=== PATIENT | female | born 1940 | race Caucasian/White ===

== ENCOUNTER 2017-12-03 11:59 | Inpatient (IN) | payer OTHER ==
[~2017-12-03] VITALS: Ht 152.4 cm; Wt 137.0 kg
--- NOTE | 2017-12-03 11:59 | NUR ---
Patient BIBA ACLS from [facility], transferred to bed 5. RN evaluating patient at bedside.
[2017-12-03 12:01] VITALS: BP 176/79
--- NOTE | 2017-12-03 12:14 | NUR ---
PT. BIB BY BLS FROM [facility] DUE TO CHEST PAIN. PT. ARRIVED, RR EVEN AND UNLABORED, NO SOB. PT. WAS GIVEN NITROGLYCERIN AND ASA 325MG EN ROUTE. PT. STATES " I WAS SUPPOSE TO GO TO MY PAIN MANAGEMENT DOCTOR TODAY BUT THE GURNEY WAS TOO LITTLE SO I COULDNT GO, I GOT STRESSED OUT AND EVERY TIME I GET STRESSED OUT I GET CHEST PAIN, SO I CALLED 911, I DO NOT LIKE WHERE I AM AT RIGHT NOW". PT. DENIES NO CHEST PAIN AT THIS TIME. DENIES SOB. PT. IS AWAKE AND ALERT, SKIN IS WARM AND DRY TO TOUCH. SAFETY PRECAUTIONS IMPLEMENTED. ER MD NOTIFIED. WILL CONTINUE TO MONITOR.
--- NOTE | 2017-12-03 12:46 | NUR ---
PT. STATES " NURSE I CANT BREATHE". PT. 02 SAT: 88% RA . PT. WAS PUT ON O2 VIA NC 2L. ER NOTIFIED.
[2017-12-03] MEDS ORDERED: ISOS10TA9 PO (12:47)
[2017-12-03] MEDS ORDERED: D50SYR IV (12:47)
[2017-12-03] MEDS ORDERED: FURO-572 PO (12:47)
[2017-12-03] MEDS ORDERED: ACET-2619 PO (12:47)
[2017-12-03] MEDS ORDERED: SENN-72 PO (12:47)
[2017-12-03] MEDS ORDERED: LEVEMIR SUBQ (12:47)
[2017-12-03] MEDS ORDERED: DEXT31GE2 PO (12:47)
[2017-12-03] MEDS ORDERED: ROB PO (12:47)
[2017-12-03] MEDS ORDERED: DOCU-299 PO (12:47)
[2017-12-03] MEDS ORDERED: NA P135N RC (12:47)
[2017-12-03] MEDS ORDERED: MULT1SGL58 PO (12:47)
[2017-12-03] MEDS ORDERED: XAR10 PO (12:47)
[2017-12-03] MEDS ORDERED: SODI45SP36 NS (12:47)
[2017-12-03] MEDS ORDERED: BISA-213 RC (12:47)
[2017-12-03] MEDS ORDERED: CLOP75TA26 PO (12:47)
[2017-12-03] MEDS ORDERED: GUAI-646 PO (12:47)
[2017-12-03] MEDS ORDERED: MAGN400S60 PO (12:47)
[2017-12-03] MEDS ORDERED: ONDA4TAB PO (12:47)
[2017-12-03] MEDS ORDERED: GLUC1PDS1 IM (12:47)
[2017-12-03] MEDS ORDERED: BUDE1AER IH (12:47)
[2017-12-03] MEDS ORDERED: CARV12.5 PO (12:47)
[2017-12-03] MEDS ORDERED: MYCPWD TP (12:47)
[2017-12-03] MEDS ORDERED: ASPI81CT89 PO (12:47)
--- NOTE | 2017-12-03 12:47 | NUR ---
Dr. Olivares evaluating patient at bedside.
[2017-12-03] MEDS ORDERED: LID5T TP (12:52)
[2017-12-03] MEDS ORDERED: NITR0.4T2 SL (12:52)
[2017-12-03] MEDS ORDERED: GABA100C PO (12:52)
[2017-12-03] MEDS ORDERED: ACET-5636 PO (12:52)
[2017-12-03] MEDS ORDERED: INSU100S10 SC (12:55)
--- NOTE | 2017-12-03 13:39 | NUR ---
PT. RESTING COMFORTABLY IN BED, RR EVEN AND UNLABORED VIA 2L NC. BED IN LOWEST POSITION. WILL CONTINUE TO MONITOR.
[2017-12-03 13:53] LABS: BASOPHILS # (AUTO) 0.1 K/uL (0.00-0.22); BASOPHILS % (AUTO) 1.3 % (0.0-2.0); EOSINOPHILS # (AUTO) 0.3 K/uL (0-0.4); EOSINOPHILS % (AUTO) 4.2 % (0.0-4.0); HEMATOCRIT 41.6 % (36-48); LYMPHOCYTES # (AUTO) 2.5 K/uL (2.5-16.5); MEAN CORPUSCULAR HEMOGLOBIN 30 pg (27-31); MEAN CORPUSCULAR HGB CONC 34 g/dL (33-37); MEAN CORPUSCULAR VOLUME 89.2 fL (80-94); MONOCYTES # (AUTO) 0.6 K/uL (0.8-1.0); MONOCYTES % (AUTO) 8.5 % (1.7-9.3); NEUTROPHILS # (AUTO) 3.1 K/uL (1.8-7.7); PLATELET COUNT (AUTO) 233 K/uL (140-450); RED BLOOD CELL COUNT(AUTO) 4.66 MIL/uL (4.20-5.40); WHITE BLOOD COUNT (AUTO) 6.5 K/uL (4.8-10.8)
[2017-12-03 14:33] LABS: ANION GAP 12.4 (8-16); CARBON DIOXIDE 26.4 mmol/L (21-32); CHLORIDE 97 mmol/L (98-107); POTASSIUM 3.8 mmol/L (3.5-5.1); SODIUM SERUM 132 mmol/L (136-145)
[2017-12-03 14:34] LABS: ASPARTATE AMINOTRANSFERASE 22 U/L (15-37); CREATININE 1.3 mg/dL (0.6-1.3); GLUCOSE 339 mg/dL (74-106); TOTAL BILIRUBIN 0.3 mg/dL (0.0-1.0); UREA NITROGEN, BLOOD 17 mg/dL (7-18)
[2017-12-03 14:46] LABS: CREATINE KINASE MB 0.2 ng/mL (0-3.6)
--- NOTE | 2017-12-03 15:02 | NUR ---
PT. RESTING COMFORTABLY IN BED, RR EVEN AND UNLABORED, BED IN LOWEST POSITION. WILL CONTINUE TO MONITOR.
[2017-12-03] MEDS ORDERED: ZOLPIDEM 5 MG TAB PO PRN (15:35)
[2017-12-03] MEDS ORDERED: HYDROcodone/APAP 7.5/325 MG 1 TAB PO PRN (15:35)
[2017-12-03] MEDS ORDERED: LORazepam 0.5 MG TAB PO PRN (15:35)
[2017-12-03] MEDS ORDERED: ACETAMINOPHEN 325 MG TAB PO PRN (15:35)
[2017-12-03] MEDS ORDERED: DOCUSATE SODIUM 100 MG GELCAP PO PRN (15:35)
--- NOTE | 2017-12-03 16:11 | NUR ---
Patient will be admitted to care of DR. PIZANO . Admited to TELE . Will go to room 120A. Belongings list completed. Report to [facility] .
--- NOTE | 2017-12-03 16:11 | NUR ---
Admitted from ER , with chief complaint of CHEST PAIN, 77 y/o ,Female, Appropriate, AAOX4, NO S/S OF ACUTE DISTRESS. PT DENIES PAIN AT THIS TIME. IV SITE PATENT AND INTACT. PT oriented to call light, bed, phone,television, bathroom, smoking policy, visiting hours, procedures, ID bracelet on. Belongings list checked. CALL LIGHT WITHIN REACH. SAFETY MEASURES ENSURED. WILL CONTINUE TO MONITOR.
[2017-12-03 16:36] LABS: PROTHROMBIN TIME 10.8 secs (10.8-13.4)
[2017-12-03 16:39] LABS: FREE T4 (FREE THYROXINE) 1.01 ng/dL (0.76-1.46); MAGNESIUM 1.5 mg/dL (1.8-2.4); PHOSPHORUS 3.8 mg/dL (2.5-4.9); THYROID STIMULATING HORMONE 3.93 uIU/mL (0.34-3.74)
[2017-12-03 16:40] VITALS: BP 125/70
[2017-12-03] MEDS ORDERED: MAGNESIUM HYDROXIDE 2400 MG/30 ML UDC PO PRN (17:00)
[2017-12-03] MEDS ORDERED: SODIUM PHOSPHATE 118 ML ENEM RC SCH (17:00)
[2017-12-03] MEDS ORDERED: BISACODYL 10 MG SUPP RC PRN (17:00)
[2017-12-03] MEDS ORDERED: LIDOCAINE 5% 1 EA PATCH TP PRN ×2 (17:00→18:20)
[2017-12-03] MEDS ORDERED: ISOSORBIDE DINITRATE 10 MG TAB PO SCH (17:00)
--- NOTE | 2017-12-03 18:21 | NUR ---
PT REFUSING MEDICATIONS AT THIS TIME STATING "NO ONE CAN DO ANYTHING RIGHT. NO ONE EVER TAKES CARE OF ME. EVEN AT THE OTHER PLACE" EXPLAINED NEED FOR MEDS. PT STILL REFUSED
--- NOTE | 2017-12-03 18:23 | NUR ---
PT REFUSED MRSA SWAB AT THIS TIME.
[2017-12-03] MEDS ORDERED: DEXTROSE 50% 50 ML SYR IVP PRN (19:05)
--- NOTE | 2017-12-03 19:22 | NUR ---
ENDORSED PLAN OF CARE TO NIGHT RN.
--- NOTE | 2017-12-03 19:25 | NUR ---
RECEIVED REPORT FROM DAY SHIFT RN FOR CONTINUITY OF CARE. PT IS A/OX4, ON 2L O2 VIA NASAL CANNULA. PT IS ABLE TO MAKE NEEDS KNOWN, ABLE TO FOLLOW COMMANDS. RESPIRATIONS EVEN AND UNLABORED AT THE MOMENT. PT HAS EDEMA TO BILATERAL LOWER EXTREMITIES. PT HAS 22G IV TO RIGHT FOREARM, ASYMPTOMATIC, INTACT AND PATENT. DISCUSSED PLAN OF CARE WITH PT, PT VERBALIZED UNDERSTANDING. BLOOD PRESSURE ELEVATED, MADE DR PANDA AWARE AND TOLD HIM BP MEDS WERE DUE SOON, SAID OK, NO FURTHER ORDERS GIVEN. OTHER WITHIN NORMAL LIMITS. PT STABLE, NO SIGNS OF DISTRESS NOTED AT THIS TIME. BED IN LOWEST POSITION, BED ALARM ON. CALL LIGHT WITHIN REACH, WILL CONTINUE TO MONITOR.
[2017-12-03] MEDS ORDERED: MAGNESIUM OXIDE 400 MG TAB PO SCH (19:30)
[2017-12-03] MEDS: NACL 0.9% 1,000 ML IV SCH ×2 (19:51→20:23)
[2017-12-03 20:00] VITALS: BP 195/87
[2017-12-03] MEDS: FUROSEMIDE 20 MG TAB PO SCH (20:11)
[2017-12-03] MEDS: DOCUSATE SODIUM 100 MG GELCAP PO SCH (20:11)
--- NOTE | 2017-12-03 20:12 | NUR ---
ADMINISTERED SCHEDULED MEDICATIONS, PATIENT TOLERATED WELL.
--- NOTE | 2017-12-03 20:15 | NUR ---
PT REQUESTED PERCOCET FOR PAIN BECAUSE SHE STATES [facility] DOES NOT WORK FOR HER. SPOKE TO DR PANDA ABOUT IT AND AGREED TO ORDER PERCOCET.
[2017-12-03] MEDS ORDERED: GABAPENTIN 100 MG CAP PO SCH (21:00)
[2017-12-03] MEDS ORDERED: CARVEDILOL 12.5 MG TAB PO SCH (21:00)
[2017-12-03] MEDS: oxyCODONE/APAP 5/325 MG 1 TAB TAB PO PRN (21:11)
[2017-12-03] MEDS: BLOOD GLUCOSE MONITORING 1 DEV DEV FS SCH (21:15)
--- NOTE | 2017-12-03 21:15 | NUR ---
TRIED TO ADMINISTER PERCOCET WITH OTHER SCHEDULED MEDICATIONS, PT STATES THE PILLS ARE NOT PERCOCET, THAT THEY ARE TYLENOL AND SHE WILL NOT TAKE THE PILLS. EXPLAINED TO PT THAT MEDICATIONS CAN LOOK DIFFERENT BUT THAT I WAS IN FACT GIVING HER TWO 5MG PILLS OF PERCOCET. PT CALLED ME A LIAR AND SAID THAT IT WAS NOT PERCOCET SO SHE WAS NOT GOING TO TAKE MEDICATION. OFFERED [facility] AND PT REFUSED AND SAID TO GET OUT.
[2017-12-03] MEDS: INSULIN LISPRO SLIDING SCALE 100 UNITS/ML VIAL SUBQ PRN (21:20)
[2017-12-03] MEDS: ALBUTEROL SULFATE/IPRATROPIU 3 ML SOL IH PRN ×2 (21:24→23:29)
--- NOTE | 2017-12-03 21:25 | NUR ---
PT CALLED AND GAVE ME HER PHONE WHEN I GOT TO HER ROOM AND SAID "THEY WANT TO TALK TO YOU." WHEN I ANSWERED PHONE, IT WAS IMELDA WITH THE [employer] SAYING PT WAS SAYING NOBODY WAS TAKING CARE OF HER. TOLD HIM WHAT HAD HAPPENED, HOW PERCOCET HAD NOT BEEN ORDERED WHEN SHE REQUESTED AND THAT I OBTAINED ORDER FROM DOCTOR FOR PERCOCET AND BREATHING TREATMENTS AND MADE THEM AVAILABLE TO HER SOON THEY WERE ORDERED AND VERIFIED, ALSO THAT PT THINKS THE PERCOCET GIVEN TO HER IS NOT REAL BECAUSE IT IS "TOO BIG." IMELDA VERBALIZED UNDERSTANDING AND SAID "YEAH, THAT'S WHAT I THOUGHT, I JUST NEEDED TO MAKE SURE."
--- NOTE | 2017-12-03 22:45 | NUR ---
PT GOT EXTRA TUNA SANDWICH BECAUSE PT STATING SHE IS HUNGRY
[2017-12-04] VITALS: BP 195/102
--- NOTE | 2017-12-04 00:30 | NUR ---
PT BLOOD PRESSURE ELEVATED, OTHER WITHIN NORMAL LIMITS. WILL INFORM DR PANDA. PT STABLE, NO SIGNS OF DISTRESS NOTED AT THIS TIME. BED IN LOWEST POSITION, BED ALARM ON. CALL LIGHT WITHIN REACH, WILL CONTINUE TO MONITOR.
[2017-12-04] MEDS: hydrALAZINE 20 MG/ML VIAL IVP SCH ×2 (01:00→03:05)
--- NOTE | 2017-12-04 01:02 | NUR ---
PT REQUESTED TYLENOL FOR MILD PAIN, TOOK TYLENOL AND HYDRALAZINE TO PT AND TOLD HER I HAD TYLENOL AND MEDICATION TO LOWER BLOOD PRESSURE, PT SAID "OK," PT TOOK TYLENOL AND WHEN HYDRALAZINE WAS GOING TO BE PUSHED IN PT SAID "WAIT, WHAT IS THAT FOR?" TOLD PT IT WAS HYDRALAZINE TO LOWER HER BLOOD PRESSURE THAT IS 195/102. PT SAID "YOU HAVEN'T EVEN TAKEN MY BLOOD PRESSURE." TOLD PT BLOOD PRESSURE WAS TAKEN AROUND 0030. PT SAID "LIAR, YOU HAVE NOT TAKEN MY BLOOD PRESSURE." TRIED TO TELL PT BLOOD PRESSURE WAS TAKEN BUT IF IT MADE PEOPLE MORE COMFORTABLE I WOULD CHECK IT AGAIN AND PT REFUSED. TOOK VITAL SIGNS MACHINE TO PT AND PT YELLED "NO, I DON'T WANT YOU TO TAKE IT AGAIN YOU SAID YOU TOOK IT LIAR!" WASTED MEDICATION BECAUSE PT REFUSED.
[2017-12-04] MEDS: NACL 0.9% 1,000 ML IV SCH (01:31)
--- NOTE | 2017-12-04 02:19 | NUR ---
PT STARTED YELLING "HELP, I CAN'T BREATHE" WENT INTO PT ROOM AND CHECKED SPO2 AND MONITORED FOR A FEW MINUTES, IT WAS AT 98% AND PT HAD FALLEN ASLEEP. TURNED LIGHTS OFF AND STARTED TO WALK AWAY AND PT WOKE UP AND STARTED YELLING "TURN THE FUCKING LIGHT ON YOU FUCKING BITCH, WHAT IS WRONG WITH YOU BITCH, GET THE FUCK OUT BITCH, YOU BITCH, ASSHOLE!" AND SHE STARTED RAISING THE CALL LIGHT LIKE SHE WAS ABOUT TO THROW IT AT ME.
--- NOTE | 2017-12-04 02:26 | NUR ---
JUST HUNG UP THE PHONE, ISAURA FROM THE POLICE DEPARTMENT CALLED ME TO ASK ABOUT PT BECAUSE SHE CALLED THEM SAYING SHE WAS BEING MOLESTED. EXPLAINED TO ISAURA WHAT HAPPENED AND HE SAID HE WOULD SEND TWO POLICE OFFICERS SOON THEY WERE AVAILABLE.
--- NOTE | 2017-12-04 03:20 | NUR ---
POLICE OFFICERS CAME AND GOT REPORT OF WHAT HAPPENED, CALLED DR PANDA AND HE WENT TO TALK TO PT WELL. PT TOLD POLICE AND SHE DOES NOT TRUST ANYONE AND WANTS ME TO CHECK BLOOD PRESSURE IN FRONT OF THEM. CHECKED BLOOD PRESSURE AND IT WAS 240/123 AND SPOKE TO PT ABOUT RECEIVING HYDRALAZINE, PT AGREED IF WAS THERE TO SUPERVISE. ADMINISTERED SCHEDULED HYDRALAZINE AND PT TOLERATED WELL.
[2017-12-04] MEDS: ALBUTEROL SULFATE/IPRATROPIU 3 ML SOL IH PRN (03:37)
--- NOTE | 2017-12-04 03:40 | NUR ---
ENDORSED PT TO RN RAFAEL FOR CONTINUITY OF CARE.
--- NOTE | 2017-12-04 03:42 | NUR ---
RECEIVED PT FROM LUIS RN PT [id number] MORBID OBESITY; ADMITTING WITH DX CHEST PAIN SCREAMING VERY LOUD AND POLICE AT BED SIDE BECAUSE PT CALL POLICE SHE SAID BECAUSE SHE WAS NOT FEELING WELL DR PORTER AT BED SIDE TOO BLOOD PRESSSURE 220/127 HR 98 02 SAT 98% TEMP 97.4 , [id number] MG ALREADY GIVEN FOR ORDER AND DR TO FOLLOW ORDERS
[2017-12-04] MEDS: LORazepam 0.5 MG TAB PO PRN (04:09)
--- NOTE | 2017-12-04 04:09 | NUR ---
ATIVAN PO GIVENAS DR ORDER BP WILL BE MONITORING CLOSE
[2017-12-04 04:10] VITALS: BP 237/127
--- NOTE | 2017-12-04 04:30 | NUR ---
PT UNABLE TO TAKE BLOOD PRESSURE VERY COMBATIVE AN SHOUTING SO IVOYR MUJICA AWARE
--- NOTE | 2017-12-04 05:15 | NUR ---
UNABLE TO TAKE BLOOD PRESSURE PT SCREEMING SO LAUD AND COMBATIVE HITTING NURSES DR MUJICA AWARE
[2017-12-04] MEDS: oxyCODONE/APAP 5/325 MG 1 TAB TAB PO PRN ×3 (05:25→21:24)
--- NOTE | 2017-12-04 06:10 | NUR ---
AT THIS TIME PT IS QUIET SLEEPING PT HAS BEEN REFUSING TELEMETRY BOX DR LOMELI
[2017-12-04 06:19] LABS: T4 (THYROXINE) 5.7 ug/dL (4.5-12.0)
[2017-12-04] MEDS ORDERED: LORazepam 2 MG/ML VIAL IVP SCH (06:30)
[2017-12-04] MEDS: BLOOD GLUCOSE MONITORING 1 DEV DEV FS SCH ×4 (07:30→21:26)
--- NOTE | 2017-12-04 07:30 | NUR ---
RECEIVED REPORT FROM FUR PULLER NURSE, PT IS SLEEPING IN BED, SEMI FOWLERS POSITION, PT IS ON O2 2L NC, PT HAS IV ON HER RIGHT WRIST, PT IS REFUSING TO BE PLACED ON TELE MONITORING AT THIS TIME, SKIN IS INTACT, DRY, NO S/S OF RESPIRATORY DISTRESS OR DISCOMFORT NOTED, REINFORCEMENT IS NEEDED, SAFETY/FALL PRECAUTIONS ARE IN PLACE, CALL LIGHT WITHIN REACH, WILL CONTINUE TO MONITOR.
[2017-12-04] MEDS ORDERED: cloNIDine 0.1 MG TAB PO PRN (07:35)
[2017-12-04] MEDS: FUROSEMIDE 20 MG TAB PO SCH ×2 (09:00→21:23)
[2017-12-04] MEDS: CARVEDILOL 12.5 MG TAB PO SCH ×2 (09:00→21:24)
[2017-12-04] MEDS: CLOPIDOGREL 75 MG TAB PO SCH (09:00)
[2017-12-04] MEDS: ASPIRIN 81 MG TAB.CHEW PO SCH (09:00)
[2017-12-04] MEDS: ISOSORBIDE DINITRATE 10 MG TAB PO SCH ×3 (09:00→17:00)
[2017-12-04] MEDS: GABAPENTIN 100 MG CAP PO SCH ×3 (09:00→17:00)
[2017-12-04] MEDS: INSULIN LANTUS 100 UNITS/ML 10 ML VIAL SUBQ SCH (09:00)
[2017-12-04] MEDS ORDERED: SODIUM CHLORIDE 0.65% 45 ML BTL NS SCH (09:00)
[2017-12-04] MEDS: hydrALAZINE 25 MG TAB PO SCH ×3 (09:00→17:00)
[2017-12-04] MEDS: DOCUSATE SODIUM 100 MG GELCAP PO SCH ×2 (09:00→21:23)
[2017-12-04] MEDS: RIVAROXABAN 15 MG TAB PO SCH (09:00)
[2017-12-04] MEDS ORDERED: RIVAROXABAN 10 MG TAB PO SCH (09:00)
[2017-12-04] MEDS: SENNA 8.6 MG TAB PO SCH (09:00)
--- NOTE | 2017-12-04 09:52 | NUR ---
PATIENT REFUSING BLOOD GLUCOSE CHECK AND VITAL SIGN CHECK. PATIENT REMOVED BP CUFF DURING PROCESS OF CHECKING VITAL SIGNS. PATIENT YELLED "LEAVE ME ALONE." EXPLAINED TO PATIENT I HAVE HER BLOOD PRESSURE MEDICATIONS AND NEED TO CHECK BP, PATIENT REPLIED "DONT TALK TO ME, LEAVE ME ALONE." CONTINUED TO EXPLAIN TO PATIENT REGARDING BP AND GLUCOSE CHECK PATIENT, PATIENT REFUSING TO RESPOND.
--- NOTE | 2017-12-04 10:00 | NUR ---
PT. REFUSED WOUND CONSULT. OFFERED X 3 RISKS AND BENEFITS EXPLAINED. PT. STILL REFUSED. PRIMARY RN AT BED SIDE.
--- NOTE | 2017-12-04 10:15 | NUR ---
INFORMED DR. HARVEY THE PATIENT WAS REFUSING TO HAVE HER VS AND BLOOD GLUCOSE CHECKED, SHE ALSO REFUSED MORNING MEDICATIONS. DR. HARVEY SAID HE WOULD GO AND TALK TO THE PATIENT.
[2017-12-04] MEDS ORDERED: NITROGLYCERIN 0.4 MG TAB SL SCH (10:26)
--- NOTE | 2017-12-04 10:31 | NUR ---
PATIENT HAS BEEN SCREENED AND CATEGORIZED HIGH NUTRITION RISK. PATIENT WILL BE SEEN WITHIN 1-2 DAYS OF ADMISSION. 12/04/17 12/05/[address]
--- NOTE | 2017-12-04 10:42 | NUR ---
TECHNICIAN BIOLOGICAL HEALTH ATTEMPTED TO TURN PT AND CHECK IF SOILED, PT REFUSED TO BE TOUCHED.
[2017-12-04] MEDS ORDERED: NACL 0.9% 500 ML IV SCH (11:18)
[2017-12-04] MEDS: NACL 0.9% 250 ML IV SCH (11:25)
--- NOTE | 2017-12-04 13:25 | NUR ---
I ASKED THE PATIENT IF I COULD CHECK HER BLOOD PRESSURE, PT PULLED HER ARM AWAY AND SAID "NAEEM, NAEEM, NAEEM." PT REFUSED VITAL SIGN CHECK.
[2017-12-04 16:00] VITALS: BP 161/108
--- NOTE | 2017-12-04 16:30 | NUR ---
ASKED PATIENT IF I COULD CHECK BLOOD SUGAR, PT REFUSED, SAID, "NO." PATIENT'S FAMILY IS AT BEDSIDE. EDUCATION WAS GIVEN ON THE NEED FOR BLOOD SUGAR CHECK, PT STILL REFUSED.
--- NOTE | 2017-12-04 17:38 | NUR ---
DR. NAM IS AT PATIENT'S BEDSIDE SPEAKING WITH PT.
--- NOTE | 2017-12-04 19:26 | NUR ---
PT ASKED ME TO CHECK HER BLOOD SUGAR. CURRENT BLOOD SUGAR IS 419. I WENT AHEAD AND LET DR. PORTER KNOW, PER. DR. PORTER GIVE 12 UNITS OF HUMALOG.
--- NOTE | 2017-12-04 19:26 | NUR ---
BLOOD GLUCOSE TAKEN BY DAY SHIFT NURSE RADHA RESULTED 419. SHE ALSO ADMINISTERED HUMALOG 12 UNITS AT 1933.
[2017-12-04] MEDS: INSULIN LISPRO SLIDING SCALE 100 UNITS/ML VIAL SUBQ PRN (19:33)
--- NOTE | 2017-12-04 19:35 | NUR ---
ENDORSED PT TO MATERIALS MANAGEMENT MANAGER NURSE FOR CONTINUITY OF CARE. PT STABLE AT THIS TIME.
--- NOTE | 2017-12-04 19:36 | NUR ---
RECEIVED REPORT FROM DAY SHIFT NURSE JAQUI AT BEDSIDE. PT RESTING IN BED EATING-AOX4, ON 2L/NC WITH RIGHT WRIST 22G-SL. BEDBOUND AND INCONTINENT. DISCUSSED PLAN OF CARE AND PT VERBALIZED UNDERSTANDING. NO S/S OF RESPIRATORY DISTRESS OR DISCOMFORT NOTED AT THIS TIME. WHITE BOARD UPDATED. BED IN LOWEST POSITION, BED BREAKS ON, BOTH SIDE RAILS UP. BED SIDE TABLE AND CALL LIGHT ARE WITHIN REACH. WILL CONTINUE TO MONITOR.
[2017-12-04 20:00] VITALS: BP 146/92
--- NOTE | 2017-12-04 20:00 | NUR ---
PT REFUSING VITAL SIGNS WHEN I INFORMED HER THAT WE DO NOT HAVE WRIST BLOOD PRESSURE MACHINES STATING, "THIS HOSPITAL IS SO CHEAP THAT THEY DON'T HAVE THOSE WRIST MACHINES." I OFFERED TAKING HER BLOOD PRESSURE USING A SMALLER BLOOD PRESSURE CUFF AROUND HER FOREARM HOWEVER PT CONTINUES TO REFUSE. TOLD PT THE MEDICATION SHE HAS SCHEDULED AND SHE STATED SHE KNOWS HER MEDICATION AND I DO NOT NEED TO TELL HER WHAT EACH MEDICATION IS FOR. SHE THEN REQUESTED PERCOCET 10. I ASKED PT WHERE HER PAIN LEVEL IS FROM A SCALE OF 0-10 AND SHE REPLIED, "IF I TELL YOU I'M IN PAIN, I'M IN PAIN AND I WANT MY PERCOCET." I EDUCATED PT ON HOW THE PAIN SCALE WORKS TO MEDICATE A PARTICULAR PAIN LEVEL AND REMINDED PT THAT FOR HER SAFETY I WOULD ALSO LIKE TO TAKE HER VITAL SIGNS AND SHE CONTINUED TO REFUSED REPEATING UNDER HER BREATH "STUPID, STUPID STUPID." SHE CONTINUED TO REFUSE VITAL SIGNS STATING, "IF YOU DON'T DO I SAY I AM GOING TO LEAVE AND YOU ARE GOING TO LOOK BAD." I REPLIED THAT LEAVING AGAINST MEDICAL ADVICE IS AN OPTION. PT REMAINED QUIET. WILL LET MD KNOW OF PT REFUSAL AND REQUEST FOR PERCOCET.
--- NOTE | 2017-12-04 21:15 | NUR ---
PT CONTINUES TO INSIST TO BE GIVEN PERCOCET FOR GENERALIZED PAIN HOWEVER REFUSING VITAL SIGNS. SPOKE WITH DR. BARBOUR ABOUT SITUATION AND HE AGREED THAT THIS NARCOTIC CANNOT BE GIVEN WITHOUT KNOWING PT VITAL SIGNS SINCE SHE HAS A HISTORY OF HIGH BLOOD PRESSURE-FOR SAFETY. MD IN TO SEE PT AND CONVINCED HER THAT TAKING HER VITAL SIGNS FOR HER TO TAKE PAIN MEDICATION WOULD BE BENEFICIAL TO HER. WILL ADMINISTER PAIN MEDICATION AND OFFER SCHEDULED MEDICATION WELL AFTER VITAL SIGNS HAVE BEEN TAKEN.
--- NOTE | 2017-12-04 21:25 | NUR ---
SCHEDULED MEDICATION AND PERCOCENT FOR PAIN WAS GIVEN AFTER PT ALLOWED ME TO TAKE HER VITAL SIGNS. ALLOWED ME TO USE HER RIGHT FOREARM FOR HER BLOOD PRESSURE. REFUSED TO USE THE ORAL THERMOMETER-USED AXILIARY STATING WHY I DID NOT USE THE TEMPORAL THERMOMETER. EXPLAINED THAT I DO NOT HAVE ONE NOR DO I KNOW WHERE THEY ARE AT THIS MOMENT. PT TOLERATED WELL. PT NOW REQUESTING TO BE CLEANED AND CHANGED AFTER SOILING LINENS WITH URINE. TOLD PT THAT I WOULD CONTACT THE WIRE TESTER SO THAT SHE MAY HELP ME. PT STATED, "HOW MANY PEOPLE WILL BE IN HERE? I DO NOT WANT A CROWD OF PEOPLE. IT IS AGAINST MY CATHOLIC." EXPLAIND TO PT THAT I WOULD ONLY BE ASKING FOR HELP BY ONE FEMALE WIRE TESTER TO ASSIST ME FOR SAFETY REASONS. NO S/S OF RESPIRATORY DISTRESS OR DISCOMFORT NOTED AT THIS TIME. WILL CONTINUE TO MONITOR.
--- NOTE | 2017-12-04 23:30 | NUR ---
PT RESTING IN BED ENJOYING A CHICKEN SANDWICH WHILE TALKING ON THE PHONE. NO S/S OF RESPIRATORY DISTRESS OR DISCOMFORT NOTED AT THIS TIME. WILL CONTINUE TO MONITOR.
--- NOTE | 2017-12-05 | NUR ---
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 LAST THING I WANT IS TO TAKE MORE ANTIBIOTICS."
--- NOTE | 2017-12-05 | NUR ---
PT REFUSED TO HAVE VITAL SIGNS TAKEN AT THIS TIME SINCE SHE WILL NOT BE TAKING ANY MEDICATION. NO S/S OF RESPIRATORY DISTRESS OR DISCOMFORT NOTED AT THIS TIME. WILL CONTINUE TO MONITOR.
--- NOTE | 2017-12-05 02:30 | NUR ---
PERSONNEL OFFICER ASSISTED IN CHANGING FRESH NEW LINENS AFTER PT SOILED THEM IN URINE. PERINEAL CARE DONE. PT TOLERATED WELL. NO S/S OF RESPIRATORY DISTRESS OR DISCOMFORT NOTED AT THIS TIME. WILL CONTINUE TO MONITOR.
[2017-12-05] MEDS: oxyCODONE/APAP 5/325 MG 1 TAB TAB PO PRN ×2 (04:15→10:14)
[2017-12-05 07:00] LABS: BASOPHILS # (AUTO) 0.1 K/uL (0.00-0.22); BASOPHILS % (AUTO) 0.8 % (0.0-2.0); EOSINOPHILS # (AUTO) 0.3 K/uL (0-0.4); EOSINOPHILS % (AUTO) 3.9 % (0.0-4.0); HEMATOCRIT 43.1 % (36-48); HEMOGLOBIN 14.7 g/dL (12.0-16.0); LYMPHOCYTES # (AUTO) 2.9 K/uL (2.5-16.5); LYMPHOCYTES % (AUTO) 38.7 % (20.5-51.1); MEAN CORPUSCULAR HEMOGLOBIN 31 pg (27-31); MEAN CORPUSCULAR HGB CONC 34 g/dL (33-37); MEAN CORPUSCULAR VOLUME 89.6 fL (80-94); MONOCYTES # (AUTO) 0.7 K/uL (0.8-1.0); MONOCYTES % (AUTO) 9.4 % (1.7-9.3); NEUTROPHILS # (AUTO) 3.5 K/uL (1.8-7.7); NEUTROPHILS % (AUTO) 47.2 % (42.2-75.2); PLATELET COUNT (AUTO) 255 K/uL (140-450); RED BLOOD CELL COUNT(AUTO) 4.82 MIL/uL (4.20-5.40); RED CELL DISTRIBUTION WIDTH 14.2 % (11.6-13.7); WHITE BLOOD COUNT (AUTO) 7.4 K/uL (4.8-10.8)
[2017-12-05] MEDS: BLOOD GLUCOSE MONITORING 1 DEV DEV FS SCH ×4 (07:06→21:20)
[2017-12-05] MEDS: INSULIN LISPRO SLIDING SCALE 100 UNITS/ML VIAL SUBQ PRN ×4 (07:11→21:27)
[2017-12-05 07:47] LABS: ANION GAP 13.3 (8-16); CARBON DIOXIDE 27.4 mmol/L (21-32); CHLORIDE 95 mmol/L (98-107); CREATININE 1.3 mg/dL (0.6-1.3); GLUCOSE 333 mg/dL (74-106); POTASSIUM 3.7 mmol/L (3.5-5.1); SODIUM SERUM 132 mmol/L (136-145); UREA NITROGEN, BLOOD 20 mg/dL (7-18)
--- NOTE | 2017-12-05 07:50 | NUR ---
ENDORSED PT CARE TO DAY SHIFT NURSE GIOVANNA FOR CONTINUITY OF CARE.
--- NOTE | 2017-12-05 07:51 | NUR ---
RECEIVED REPORT FROM DIGITAL CAMPAIGN SPECIALIST NURSE. PATIENT SITTING IN BED WATCHING TV. NO DISTRESS NOTED. DENIES ANY PAIN. RESPIRATIONS EVEN, UNLABORED, ON O2 2L/MIN VIA NC. AAOX3, CALM, COOPERATIVE, SKIN COLOR APPROPRIATE TO ETHNICITY, WARM TO TOUCH. SKIN INTACT. ABDOMEN SOFT, OBESE. LUNGS CTA ON ALL LOBES. IV SITE INTACT, PATENT, AND INFUSING IVF PER MD ORDERS. CONTINUES TO REFUSE TELE MONITORING AND MRSA NARES SWAB. MD ALREADY AWARE. REVIEWED PLAN OF CARE WITH PATIENT. PATIENT VERBALIZED UNDERSTANDING. SAFETY MEASURES IN PLACE, CALL LIGHT WITHIN REACH. WILL CONTINUE TO MONITOR.
[2017-12-05 08:00] VITALS: BP 140/75
[2017-12-05 08:00] LABS: MAGNESIUM 1.8 mg/dL (1.8-2.4); PHOSPHORUS 3.3 mg/dL (2.5-4.9)
[2017-12-05] MEDS: INSULIN LANTUS 100 UNITS/ML 10 ML VIAL SUBQ SCH (09:00)
[2017-12-05] MEDS ORDERED: QUEtiapine FUMARATE 25 MG TAB PO SCH (09:00)
[2017-12-05] MEDS: ASPIRIN 81 MG TAB.CHEW PO SCH (09:15)
[2017-12-05] MEDS: DIVALPROEX 250 MG TABEC PO SCH ×4 (09:15→17:00)
[2017-12-05] MEDS: SENNA 8.6 MG TAB PO SCH (09:15)
[2017-12-05] MEDS: ESCITALOPRAM 20 MG TAB PO SCH (09:16)
[2017-12-05] MEDS: CARVEDILOL 12.5 MG TAB PO SCH ×2 (09:16→20:33)
[2017-12-05] MEDS: hydrALAZINE 25 MG TAB PO SCH ×3 (09:17→17:45)
[2017-12-05] MEDS: FUROSEMIDE 20 MG TAB PO SCH ×2 (09:17→20:28)
[2017-12-05] MEDS: GABAPENTIN 100 MG CAP PO SCH ×3 (09:17→17:45)
[2017-12-05] MEDS: CLOPIDOGREL 75 MG TAB PO SCH (09:17)
[2017-12-05] MEDS: ISOSORBIDE DINITRATE 10 MG TAB PO SCH ×3 (09:18→17:45)
[2017-12-05] MEDS: DOCUSATE SODIUM 100 MG GELCAP PO SCH ×3 (09:18→20:37)
[2017-12-05] MEDS: RIVAROXABAN 15 MG TAB PO SCH (09:21)
--- NOTE | 2017-12-05 09:45 | NUR ---
PATIENT SITTING IN BED IN AGITATED MOOD. SCHEDULED ORAL MEDICATIONS DUE GIVEN. INSULIN LANTUS NOT GIVEN DUE TO PATIENT REFUSING. SAFETY MEASURES IN PLACE, CALL LIGHT WITHIN REACH. WILL CONTINUE TO MONITOR.
[2017-12-05] MEDS: NYSTATIN POW 100 MU/GM 15 GM BTL TP SCH ×2 (10:56→20:29)
[2017-12-05] MEDS: NACL 0.9% 250 ML IV SCH (11:25)
--- NOTE | 2017-12-05 11:41 | NUR ---
12/05/17 RD INITIAL ASSESSMENT COMPLETED PLEASE REFER TO NUTRITION ASSESSMENT UNDER CARE ACTIVITY FOR ESTIMATED NUTRITIONAL NEEDS. RD RECOMMENDATIONS: 1. CONTINUE CCHO 60 GM + MECHANICAL SOFT DIET TOLERATED. 2. ENCOURAGE ORAL INTAKE FOR ADEQUATE NUTRITION INTAKE. -FOOD PREFERENCES OBTAINED. 3. IF PATIENT CONTINUES WITH POOR ORAL INTAKE, CONSIDER ADDING GLUCERNA SHAKE WITH MEALS TO OPTIMIZE NUTRITION INTAKE. -EACH GLUCERNA SHAKE PROVIDES 220 KCAL AND 10 GM OF PROTEIN. 4. RD WILL F/U 2-3 DAYS; HIGH RISK. INDIRA VAUGHN, RD
[2017-12-05 12:00] VITALS: BP 109/63
--- NOTE | 2017-12-05 12:38 | NUR ---
PATIENT SITTING IN BED WITH LUNCH TRAY IN FRONT. CONTINUES TO BE IN AGITATED MOOD, SAYING "KEEP THOSE PSYCH DOCTORS AWAY FROM ME, YOU HEAR THAT?". PATIENT REFUSED DEPAKOTE AT THIS TIME. HYDRALAZINE NOT GIVEN DUE TO DECREASED BP. SAFETY MEASURES IN PLACE, CALL LIGHT WITHIN REACH. WILL CONTINUE TO MONITOR.
[2017-12-05] MEDS ORDERED: SODIUM PHOSPHATE 118 ML ENEM RC PRN (14:24)
[2017-12-05] MEDS ORDERED: POLYETHYLENE GLYCOL 17 GM/PKT PO SCH (14:25)
--- NOTE | 2017-12-05 14:30 | NUR ---
P.T. NOTES CHART REVIEWED, AND WAS GIVEN CLEARANCE FOR P.T. EVAL BY HER NURSE DIONNA. RECEIVED PATIENT ASLEEP IN HER BED BUT WAS EASILY AWAKEN WHEN VERBALLY STIMULATED. PATIENT NOT HAPPY TO WAKE UP STATING SHE'S NOT PARTICIPATING WITH P.T. EVAL AND JUST WANT TO GO BACK TO SLEEP. EXPLAINED THE M.D. ORDER BUT STILL REFUSED TO GET UP. HER NURSE DIONNA WAS MADE AWARE OF HER REFUSAL. PLAN: WE'LL TRY AGAIN ON THE NEXT P.T. EVAL SCHEDULED DAY.
--- NOTE | 2017-12-05 14:59 | NUR ---
WENT TO PT'S ROOM TO EXPLAIN THAT THE DOCTOR ORDERED CPAP AT [facility] FOR HER AND SHE STATED SHE WAS SCARED OF THE CPAP AND WOULD NOT BEING WEARING THAT AT ALL. SHE STATED SHE WOULD KEEP THE OXYGEN ON HER AT THIS TIME. I INFORMED DR. FLORES ABOUT WHAT THE PT TOLD ME.
[2017-12-05 16:00] VITALS: BP 140/83
--- NOTE | 2017-12-05 17:48 | NUR ---
ASSISTED CREATIVE PROJECT MANAGER IN CLEANING AND REPOSITIONING PATIENT, SPONGE BATH GIVEN. NO DISTRESS NOTED. DENIES ANY PAIN AT THIS TIME. SCHEDULED MEDICATIONS DUE GIVEN. SAFETY MEASURES IN PLACE, CALL LIGHT WITHIN REACH.
--- NOTE | 2017-12-05 19:30 | NUR ---
GAVE REPORT TO SNAG GRINDER NURSE FOR CONTINUITY OF CARE. PATIENT IN STABLE CONDITION.
--- NOTE | 2017-12-05 19:31 | NUR ---
RECEIVED REPORT FROM AM NURSE AT BEDSIDE. PT IN STABLE CONDITION. AAOX4. INTRODUCED SELF TO PT AND BOARD UPDATED. PT IN BED WATCHING TV AND HAVING DINNER. VS STABLE. IV SITE PATENT AND INTACT R WRIST 22G SALINE LOCKED. NO COMPLAINTS OF PAIN AT THIS MOMENT. PT ON 2L VIA NC. PT HAS POOR GLUCOSE CONTROL AND IS NONCOMPLIANT REFUSING BREATHING TX AND MRSA NARE SWAB. SKIN WARM, DRY, AND INTACT WITH NO OPEN WOUNDS. BED LOCKED IN LOW POSITION. CALL REYES WITHIN REACH.
--- NOTE | 2017-12-05 20:25 | NUR ---
LASIX GIVEN. PT TOLERATED WELL. COLACE AND MIRALAX HELD. COREG HELD DUE TO DECREASED BP.
[2017-12-05] MEDS: POLYETHYLENE GLYCOL 17 GM/PKT PO SCH ×2 (20:29→20:37)
--- NOTE | 2017-12-05 21:15 | NUR ---
NITROSTAT GIVEN FOR CHEST PAIN. NO SECOND DOSE NEEDED. BS 294. 6 UNITS OF HUMALOG GIVEN IN THE ABDOMEN.
[2017-12-05] MEDS: NITROGLYCERIN 0.4 MG TAB SL PRN (21:17)
--- NOTE | 2017-12-05 21:30 | NUR ---
NYSTATIN POWDER APPLIED.
--- NOTE | 2017-12-06 01:00 | NUR ---
PT SLEEPING COMFORTABLY UPRIGHT. NO S/S OF DISTRESS.
--- NOTE | 2017-12-06 03:30 | NUR ---
PT SLEEPING COMFORTABLY. NO S/S OF DISTRESS. WILL CONTINUE TO MONITOR.
--- NOTE | 2017-12-06 06:20 | NUR ---
PT IS VERY COMBATIVE DURING BLOOD DRAWS AND ACCUCHECKS. CALLING THE WEIGHT AND BALANCE CONTROL AGENT AND MYSELF STUPID. SAYING THAT SHE WOULD GET BACK AT US. BS 251. PT REFUSED INSULIN.
[2017-12-06] MEDS: BLOOD GLUCOSE MONITORING 1 DEV DEV FS SCH ×4 (06:30→20:01)
[2017-12-06] MEDS: oxyCODONE/APAP 5/325 MG 1 TAB TAB PO PRN ×3 (06:35→18:30)
--- NOTE | 2017-12-06 07:15 | NUR ---
REPORT GIVEN TO AM NURSE AT BEDSIDE. PT IN STABLE CONDITION.
--- NOTE | 2017-12-06 07:16 | NUR ---
RECEIVED REPORT FROM PIT SUPERVISOR NURSE. PATIENT SITTING IN BED WATCHING TV. NO DISTRESS NOTED. PAIN WITHIN TOLERABLE. RESPIRATIONS EVEN, UNLABORED, ON O2 2L/MIN VIA NC. AAOX3, CALM, COOPERATIVE, SKIN COLOR APPROPRIATE TO ETHNICITY, WARM TO TOUCH. SKIN INTACT. ABDOMEN SOFT, OBESE. LUNGS CTA ON ALL LOBES. IV SITE INTACT, PATENT, AND INFUSING IVF PER MD ORDERS. CONTINUES TO REFUSE TELE MONITORING AND MRSA NARES SWAB. MD ALREADY AWARE. REVIEWED PLAN OF CARE WITH PATIENT. PATIENT VERBALIZED UNDERSTANDING. SAFETY MEASURES IN PLACE, CALL LIGHT WITHIN REACH. WILL CONTINUE TO MONITOR.
[2017-12-06 07:42] LABS: BASOPHILS % (AUTO) 0.6 % (0.0-2.0); EOSINOPHILS # (AUTO) 0.4 K/uL (0-0.4); EOSINOPHILS % (AUTO) 5.8 % (0.0-4.0); HEMATOCRIT 42.4 % (36-48); HEMOGLOBIN 14.4 g/dL (12.0-16.0); LYMPHOCYTES # (AUTO) 2.6 K/uL (2.5-16.5); LYMPHOCYTES % (AUTO) 39.8 % (20.5-51.1); MEAN CORPUSCULAR HEMOGLOBIN 31 pg (27-31); MEAN CORPUSCULAR HGB CONC 34 g/dL (33-37); MEAN CORPUSCULAR VOLUME 89.6 fL (80-94); MONOCYTES # (AUTO) 0.6 K/uL (0.8-1.0); NEUTROPHILS # (AUTO) 2.9 K/uL (1.8-7.7); NEUTROPHILS % (AUTO) 44.8 % (42.2-75.2); PLATELET COUNT (AUTO) 227 K/uL (140-450); RED BLOOD CELL COUNT(AUTO) 4.73 MIL/uL (4.20-5.40); RED CELL DISTRIBUTION WIDTH 14.1 % (11.6-13.7); WHITE BLOOD COUNT (AUTO) 6.5 K/uL (4.8-10.8)
[2017-12-06 08:00] VITALS: BP 150/90
[2017-12-06 08:01] LABS: ANION GAP 14.1 (8-16); CARBON DIOXIDE 25.6 mmol/L (21-32); CHLORIDE 98 mmol/L (98-107); CREATININE 1.2 mg/dL (0.6-1.3); GLUCOSE 264 mg/dL (74-106); POTASSIUM 3.7 mmol/L (3.5-5.1); SODIUM SERUM 134 mmol/L (136-145); UREA NITROGEN, BLOOD 22 mg/dL (7-18)
[2017-12-06 08:34] LABS: MAGNESIUM 1.9 mg/dL (1.8-2.4); PHOSPHORUS 4.1 mg/dL (2.5-4.9)
[2017-12-06] MEDS: INSULIN LANTUS 100 UNITS/ML 10 ML VIAL SUBQ SCH (08:38)
[2017-12-06] MEDS: hydrALAZINE 25 MG TAB PO SCH ×3 (08:41→16:19)
[2017-12-06] MEDS: DOCUSATE SODIUM 100 MG GELCAP PO SCH ×2 (08:41→20:31)
[2017-12-06] MEDS: POLYETHYLENE GLYCOL 17 GM/PKT PO SCH ×2 (08:41→20:32)
[2017-12-06] MEDS: ASPIRIN 81 MG TAB.CHEW PO SCH (08:42)
[2017-12-06] MEDS: ATORVASTATIN 20 MG TAB PO SCH (08:42)
[2017-12-06] MEDS: GABAPENTIN 100 MG CAP PO SCH ×3 (08:42→16:19)
[2017-12-06] MEDS: SENNA 8.6 MG TAB PO SCH (08:42)
[2017-12-06] MEDS: CARVEDILOL 12.5 MG TAB PO SCH ×2 (08:42→20:38)
[2017-12-06] MEDS: FUROSEMIDE 20 MG TAB PO SCH ×2 (08:43→20:31)
[2017-12-06] MEDS: CLOPIDOGREL 75 MG TAB PO SCH (08:43)
[2017-12-06] MEDS: RIVAROXABAN 15 MG TAB PO SCH (08:43)
[2017-12-06] MEDS: ESCITALOPRAM 20 MG TAB PO SCH (08:43)
[2017-12-06] MEDS: ISOSORBIDE DINITRATE 10 MG TAB PO SCH ×3 (08:44→16:19)
[2017-12-06] MEDS: DIVALPROEX 250 MG TABEC PO SCH ×3 (08:44→16:19)
[2017-12-06] MEDS: NYSTATIN POW 100 MU/GM 15 GM BTL TP SCH ×2 (08:49→20:42)
--- NOTE | 2017-12-06 08:49 | NUR ---
PATIENT SITTING IN BED WATCHING TV. NO DISTRESS NOTED. PAIN WITHIN TOLERABLE. SCHEDULED MEDICATIONS DUE GIVEN. SAFETY MEASURES IN PLACE, CALL LIGHT WITHIN REACH. WILL CONTINUE TO MONITOR.
[2017-12-06] MEDS ORDERED: QUEtiapine FUMARATE 100 MG TAB PO SCH (09:00)
[2017-12-06] MEDS ORDERED: ESCI20TA47 PO (10:44)
[2017-12-06] MEDS ORDERED: ATOR20TA40 PO (10:44)
[2017-12-06] MEDS ORDERED: ISOS10TA9 PO (10:44)
[2017-12-06] MEDS ORDERED: RIVA15TA1 PO (10:44)
[2017-12-06] MEDS ORDERED: HYDR-4420 PO (10:44)
[2017-12-06] MEDS ORDERED: CARV25TA PO (10:44)
[2017-12-06] MEDS ORDERED: DIVA250E1 PO (10:44)
[2017-12-06] MEDS ORDERED: CLOP75TA26 PO (10:53)
[2017-12-06] MEDS: NACL 0.9% 250 ML IV SCH (11:25)
--- NOTE | 2017-12-06 11:50 | NUR ---
PATIENT SITTING IN BED IN AGITATED MOOD. REPORTS THAT SHE NEEDS TO BE CHANGED, NOTIFIED HEALTHCARE ADMINISTRATIVE ASSISTANT. TRIED TO ASSIST HEALTHCARE ADMINISTRATIVE ASSISTANT IN CLEANING, BUT REFUSES RN AT THIS TIME. REPORTS THAT SHE "HAS A BLADDER INFECTION AND NEEDS TO BE TREATED OR I WILL " HOWEVER, WILL NOT LET NURSE COLLECT URINE AND REFUSES A MAJORITY OF TREATMENT DURING HOSPITAL STAY. SAYS WANTS TO CHANGE MD'S. WILL NOTIFY RADIATION PROTECTION SPECIALIST. ALSO AGITATED MOOD BECAUSE SHE WANTS PERCOCET "RIGHT NOW" WHEN THE ORDERS ARE Q6. WILL NOTIFY MD. SAFETY MEASURES IN PLACE, CALL LIGHT WITHIN REACH. WILL CONTINUE TO MONITOR.
[2017-12-06 12:00] VITALS: BP 146/78
--- NOTE | 2017-12-06 12:19 | NUR ---
CALLED [facility] SPOKE WITH [employer] REGARDING BAD AVAILABILITY AND TO FAX ALL PATIENT'S INFORMATION ,SHE STATED NO ONE WORK TODAY AND TO CALL BACK TOMORROW
[2017-12-06] MEDS: INSULIN LISPRO SLIDING SCALE 100 UNITS/ML VIAL SUBQ PRN ×3 (12:26→20:33)
--- NOTE | 2017-12-06 12:33 | NUR ---
PATIENT SITTING IN BED WITH LUNCH TRAY IN FRONT. COMPLAINS OF PAIN, PERCOCET GIVEN PER MD ORDERS. OTHER SCHEDULED MEDICATIONS DUE GIVEN. SAFETY MEASURES IN PLACE, CALL LIGHT WITHIN REACH. WILL CONTINUE TO MONITOR.
[2017-12-06] MEDS: NITROGLYCERIN 0.4 MG TAB SL PRN ×2 (13:39→14:01)
--- NOTE | 2017-12-06 13:39 | NUR ---
PATIENT COMPLAINS OF CHEST PAIN, REQUESTING NITROGLYCERIN. 2ND DOSE OF NITRO GIVEN PER MD ORDERS. WILL CONTINUE TO MONITOR.
--- NOTE | 2017-12-06 13:50 | NUR ---
PATIENT REPORTS CHEST PAIN FEELING BETTER AFTER NITRO DOSE. WILL CONTINUE TO MONITOR.
--- NOTE | 2017-12-06 14:01 | NUR ---
PATIENT COMPLAINS OF CHEST PAIN, REQUESTING NITROGLYCERIN. 3RD TOTAL DOSE OF NITRO GIVEN. WILL CONTINUE TO MONITOR.
--- NOTE | 2017-12-06 14:15 | NUR ---
PATIENT REPORTS CHEST PAIN FEELING BETTER. WILL CONTINUE TO MONITOR.
[2017-12-06 16:00] VITALS: BP 126/66
--- NOTE | 2017-12-06 18:32 | NUR ---
PATIENT SITTING IN BED WITH DINNER TRAY IN FRONT. PATIENT COMPLAINS OF PAIN, PERCOCET GIVEN PER MD ORDERS. SAFETY MEASURES IN PLACE, CALL LIGHT WITHIN REACH. WILL CONTINUE TO MONITOR.
--- NOTE | 2017-12-06 19:25 | NUR ---
GAVE REPORT TO GREASE PRESS HELPER NURSE FOR CONTINUITY OF CARE. PATIENT IN STABLE CONDITION.
--- NOTE | 2017-12-06 19:25 | NUR ---
RECEIVED REPORT FROM DAY SHIFT NURSE AT BEDSIDE. PT IN STABLE CONDITION. PT IS AWAKE AND A/OX4. NC 2L. IV ACCESS IN R WRIST 22G SALINE LOCKED. IV IS PATENT AND INTACT. PT REFUSING TO WEAR TELE BOX. SKIN IS INTACT. NO C/O PAIN AT THIS TIME. BED LOCKED, LOWEST POSITION AND SIDE RAILS UP X2. CALL LIGHT IS WITHIN REACH. WILL CONTINUE TO MONITOR.
[2017-12-06 20:00] VITALS: BP 112/59
--- NOTE | 2017-12-06 20:33 | NUR ---
BS CHECKED, 335. INSULIN COVERAGE GIVEN PER MD ORDERS. COREG HELD D/T DECREASED BP. ALL OTHER ORDERED MEDICATIONS ADMINISTERED. PT TOLERATED WELL. ALL NEEDS ARE MET AT THIS TIME. WILL CONTINUE TO MONITOR.
--- NOTE | 2017-12-06 22:42 | NUR ---
PT IS ASLEEP IN BED. NO S/SX OF DISTRESS. WILL CONTINUE TO MONITOR.
[2017-12-07] VITALS: BP 162/84
--- NOTE | 2017-12-07 00:32 | NUR ---
PT BP ELEVATED. MADE AWARE.
[2017-12-07] MEDS ORDERED: CARVEDILOL 12.5 MG TAB PO SCH (01:30)
[2017-12-07] MEDS: oxyCODONE/APAP 5/325 MG 1 TAB TAB PO PRN ×4 (02:06→17:15)
--- NOTE | 2017-12-07 02:06 | NUR ---
PT C/O PAIN. REQUESTING MEDICATION. PERCOCET ADMINISTERED. WILL REVALUATE FOR EFFECTIVENESS.
--- NOTE | 2017-12-07 04:10 | NUR ---
PT STATED "GET THE HELL AWAY FROM ME" AND REFUSED TO LET ME CHECK HER VITAL SIGNS. WILL CONTINUE TO MONITOR PT.
[2017-12-07] MEDS: BLOOD GLUCOSE MONITORING 1 DEV DEV FS SCH ×4 (05:47→21:40)
[2017-12-07] MEDS: INSULIN LISPRO SLIDING SCALE 100 UNITS/ML VIAL SUBQ PRN ×4 (05:57→21:25)
--- NOTE | 2017-12-07 05:57 | NUR ---
BS CHECKED, 275. INSULIN COVERAGE GIVEN PER MD ORDERS. WILL CONTINUE TO MONITOR.
[2017-12-07] MEDS: ALBUTEROL SULFATE/IPRATROPIU 3 ML SOL IH PRN (07:10)
--- NOTE | 2017-12-07 07:21 | NUR ---
ENDORSED PT TO DAY SHIFT NURSE FOR CONTINUITY OF CARE. PT IN STABLE CONDITION.
--- NOTE | 2017-12-07 07:25 | NUR ---
RECEIVED BEDSIDE REPORT FROM [employer] TEAM TRUCK DRIVER NURSE. PATIENT IS AWAKE, ALERT AND ORIENTEDX3. SHE IS BEDBOUND AND WEAK BUT REFUSED PT YESTERDAY. SKIN IS INTACT EXCEPT SOME REDNESS IN THE FOLDS. MED SURGE PATIENT. IV R WRIST 22G SALINE LOCK. CLEAN, DRY AND INTACT. PER [employer] TEAM TRUCK DRIVER PATIENT REFUSED TELE MONITOR, CPAP, REFUSED ECHO AND AM LABS, ALSO REFUSED MRSA SWAB. PATIENT WILL BE NPO AFTER LIGHT BREAKFAST. BED IN LOW POSITION. CALL LIGHT WITHIN REACH. WILL CONTINUE TO MONITOR THE PATIENT
[2017-12-07 08:00] VITALS: BP 140/92
--- NOTE | 2017-12-07 08:00 | NUR ---
PATIENT IS UPSET SHE SAID "GET THE HELL AWAY FROM ME" BECAUSE I TOLD HER THAT SHE CANNOT HAVE COFFEE FOR THE STRESS TEST. TOLD DR HARVEY. DR HARVEY SAID IT WAS OK TO HAVE COFFEE. WILL CONTINUE TO MONITOR THE PATIENT
[2017-12-07] MEDS: DOCUSATE SODIUM 100 MG GELCAP PO SCH ×2 (08:56→21:28)
[2017-12-07] MEDS: hydrALAZINE 25 MG TAB PO SCH ×3 (08:58→17:15)
[2017-12-07] MEDS: ASPIRIN 81 MG TAB.CHEW PO SCH (08:58)
[2017-12-07] MEDS: FUROSEMIDE 20 MG TAB PO SCH ×2 (08:59→21:28)
[2017-12-07] MEDS: RIVAROXABAN 15 MG TAB PO SCH (09:00)
[2017-12-07] MEDS: ESCITALOPRAM 20 MG TAB PO SCH (09:00)
[2017-12-07] MEDS: ISOSORBIDE DINITRATE 10 MG TAB PO SCH ×3 (09:00→17:14)
[2017-12-07] MEDS: POLYETHYLENE GLYCOL 17 GM/PKT PO SCH ×2 (09:00→21:29)
[2017-12-07] MEDS: SENNA 8.6 MG TAB PO SCH (09:00)
[2017-12-07] MEDS: CARVEDILOL 12.5 MG TAB PO SCH ×2 (09:00→21:28)
[2017-12-07] MEDS: ATORVASTATIN 20 MG TAB PO SCH (09:00)
[2017-12-07] MEDS: GABAPENTIN 100 MG CAP PO SCH (09:00)
[2017-12-07] MEDS: DIVALPROEX 250 MG TABEC PO SCH ×3 (09:00→17:00)
[2017-12-07] MEDS: CLOPIDOGREL 75 MG TAB PO SCH (09:00)
[2017-12-07] MEDS: NYSTATIN POW 100 MU/GM 15 GM BTL TP SCH ×2 (09:03→21:00)
[2017-12-07] MEDS: INSULIN LANTUS 100 UNITS/ML 10 ML VIAL SUBQ SCH (09:03)
--- NOTE | 2017-12-07 09:20 | NUR ---
ADMINISTERED MEDS. PATIENT REFUSED DEPAKOTE, GABAPENTIN, LEXAPRO, XARALTO, ISOSORBIDE DINATRATE, CARVIDEOL, ATORVASTATIN AND SENNA. SHE SAID IT IS TOO MANY MEDS AND THEY DONT WORK. EDUCATED ON THE IMPORTANCE AND RISKS. SHE STILL REFUSED. DR HARVEY IS AWARE. BED IN LOW POSITION. CALL LIGHT WITHIN REACH
[2017-12-07] MEDS: NACL 0.9% 250 ML IV SCH (11:25)
[2017-12-07 12:00] VITALS: BP 110/51
--- NOTE | 2017-12-07 12:20 | NUR ---
ADMINISTERED MEDS. PATIENT TOLERATED WELL. BED IN LOW POSITION. CALL LIGHT WITHIN REACH. WILL CONTINUE TO MONITOR THE PATIENT
[2017-12-07] MEDS: GABAPENTIN 300 MG CAP PO SCH ×2 (12:55→17:14)
[2017-12-07] MEDS ORDERED: GABAPENTIN 300 MG CAP PO SCH (13:00)
--- NOTE | 2017-12-07 13:01 | NUR ---
1200 SPOKE WITH PT AT BEDSIDE REGARDING DISCHARGE PLAN. PER PT SHE DOES NOT WANT TO GO BACK [place] [facility] [place] WOULD RATHER BE CLOSER TO HER FAMILY WHO LIVE IN THE [facility]. STATED SHE HAS BEEN TO [facility] BEFORE AND SHE WOULD BE IN AGREEMENT TO GO OR SHE STATED THERE IS ANOTHER SNF IN THE [place] THAT SHE WOULD BE WILLING TO GO TO INFORMED PT THAT I BELIEVE THAT THE OTHER SNF IS [facility].
[2017-12-07] MEDS ORDERED: REGADENOSON 0.4 MG/5 ML SYR IV SCH (13:30)
[2017-12-07] MEDS: LORazepam 0.5 MG TAB PO PRN (13:34)
--- NOTE | 2017-12-07 13:35 | NUR ---
PATIENT IS ANXIOUS ABOUT THE SCAN AND ASKED FOR PRN ATIVAN. ADMINISTER MEDS. PATIENT TOLERATED WELL. WILL CONTINUE TO MONITOR THE PATIENT
--- NOTE | 2017-12-07 13:59 | NUR ---
Brokerage Branch Manager Note: I faxed inquiry to [facility]. Per Mike from [facility] / , patient was previously at their facility and has an outstanding balance and refused to pay her balance, unable to accept patient. I faxed inquiry to [facility].
--- NOTE | 2017-12-07 14:51 | NUR ---
PATIENT GOING TO GET PICKED UP SOON TO DO RESTING STRESS TEST. PATIENT SAID OK, TECH SAID SHE WILL EXPLAIN TO HER THAT SHE WILL BE NPO AFTER MIDNIGHT AND NO COFFEE. WILL REINFORCE TO PATIENT
--- NOTE | 2017-12-07 15:30 | NUR ---
PATIENT UNABLE TO LEXISCAN BECAUSE UNABLE TO LIFT ARMS AND BED IS TOO SMALL. PATIENT BACK IN ROOM IN STABLE CONDITION
--- NOTE | 2017-12-07 15:43 | NUR ---
CM NOTE PER JANET SAXENA PATIENT CAN GO TO [facility] RM [address] PIZANO. PER ROBERTO CARLOS OF [facility] PH# [phone], PATIENT WILL BE PICKED UP AT 1745 TIME TODAY GOING TO [facility]. NUMBER TO CALL FOR REPORT AT [facility] PH# [phone]. CHARGE NURSE KIKO BURNS AWARE.
--- NOTE | 2017-12-07 15:45 | NUR ---
It Communications Specialist Note: Per Florecita from [facility] , patient was previously living at their facility about 2-3 years ago and she is on their "do not readmit" list, unable to accept patient. Per Mike from [facility] / , patient was previously at their facility and has an outstanding balance of $9,000. Per Michelle from [facility] , patient may go to room 12B at their facility today, accepting physician is . I spoke with patient, provided her with an update regarding above information. Per patient, she is in agreement with returning to [facility] today. She stated she is planning to talk to the staff at [facility] and request assistance with finding a senior apartment. made aware patient was not accepted at [facility] or [facility] and will return to [facility].
--- NOTE | 2017-12-07 17:15 | NUR ---
ADMINISTERED PRN PAIN MEDS. PATIENT TOLERATED WELL. BED IN LOW POSITION. WILL CONTINUE TO MONITOR THE PATIENT
--- NOTE | 2017-12-07 18:00 | NUR ---
EDUCATED PATIENT ON DISEASE PROCESS, ABN S/SX, FU W DOCTOR MILEY AND SHIPPING ASSOCIATE, ALSO TO DO OUTPATIENT STRESS TEST, EDUCATED ON MEDS. PATIENT VERBALIZED UNDERSTANDING AND SIGNED PAPERWORK. PATIENT REFUSED TO REMOVE IV, GAVE REPORT TO [place] AT [facility] [place] [place] AND SHE SAID IT IS OK TO LEAVE IT ON. REPORT GIVEN, CALL BACK NUMBER GIVEN.
--- NOTE | 2017-12-07 19:10 | NUR ---
GAVE BEDSIDE REPORT TO CAR TOP BOLTER NURSE. TRANSPORT CAME BUT WILL COME BACK FOR PATIENT BECAUSE THEY NEED A BIGGER BED. CAR TOP BOLTER NURSE TO REMOVE ID BANDS. PATIENT ENDORSED IN STABLE CONDITION.
--- NOTE | 2017-12-07 19:11 | NUR ---
RECEIVED REPORT FROM DAY SHIFT NURSE. PT FOR DISCHARGE. WAITING FOR TRANSPORTATION. PT SLEEPING IN BED. NO S/S OF RESP DISTRESS. NO S/S OF PAIN. ON O2 AT 2L/MIN VIA NC. IV TO RIGHT WRIST #22G, SALINE LOCK. SAFETY PRECAUTION IN PLACE. CALL LIGHT WITHIN REACH.
[2017-12-07 20:00] VITALS: BP 149/76
--- NOTE | 2017-12-07 21:30 | NUR ---
DUE MEDS GIVEN. PT TOLERATED WELL. STILL WAITING FOR TRANSPORT. MANAGING DIRECTOR ATLAS CALLED [facility] TO FOLLOW UP.
--- NOTE | 2017-12-07 23:15 | NUR ---
[facility] HERE WITH A STANDARD/SMALL GURNEY AGAIN. CHARGE NURSE CALLED [facility] OFFICE. NO AVAILABLE BIG GURNEY/BED.
--- NOTE | 2017-12-07 23:30 | NUR ---
CHARGE NURSE CALLED [facility] AND SCHEDULED TRANSPORT. PER [facility], THEY'LL BE HERE IN 30 MINUTES. PT MADE AWARE.
--- NOTE | 2017-12-07 23:35 | NUR ---
CALLED [facility] AND SPOKE WITH GRANT COLES. NOTIFIED SANKET THAT PT WILL BE PICKED UP BY [facility] IN 30 MINUTES.
--- NOTE | 2017-12-08 00:45 | NUR ---
[facility] WAS HERE BUT PT DIDN'T WANT TO GO. CHARGE NURSE AND DR. PORTER SPOKE WITH PT BUT PT REFUSED TO GO TO [facility]. [facility] LEFT.
--- NOTE | 2017-12-08 01:05 | NUR ---
DR. PORTER IN THE ROOM TALKING TO PT. PT WANTS TO GO TO [facility] NOW.
--- NOTE | 2017-12-08 01:15 | NUR ---
[facility] CAME BACK WITH TYE. PT WET BUT REFUSED TO BE CHANGED. PT REFUSED TO REMOVE ARM BAND. ALL BELONGINGS AND DC PACKET WITH THE PT. PT DENIES PAIN. NO RESP DISTRESS NOTED. PT LEFT UNIT IN STABLE CONDITION
== END 2017-12-08 01:15 | DRG 205 ==
LOC: MED 11:59 → MTU 15:33
PROVIDERS: ADMIT General Practice; ATTEND General Practice
DX: M94.0 Chondrocostal junction syndrome [Tietze] (principal); G93.41 Metabolic encephalopathy; E43 Unspecified severe protein-calorie malnutrition; E87.1 Hypo-osmolality and hyponatremia; Z68.43 Body mass index [BMI] 50.0-59.9, adult; I16.0 Hypertensive urgency; E11.65 Type 2 diabetes mellitus with hyperglycemia; I10 Essential (primary) hypertension; E83.42 Hypomagnesemia; E66.01 Morbid (severe) obesity due to excess calories; E11.40 Type 2 diabetes mellitus with diabetic neuropathy, unspecified; K59.00 Constipation, unspecified; E87.8 Other disorders of electrolyte and fluid balance, not elsewhere classified; F03.90 Unspecified dementia, unspecified severity, without behavioral disturbance, psychotic disturbance, mood disturbance, and anxiety; J44.9 Chronic obstructive pulmonary disease, unspecified; E78.5 Hyperlipidemia, unspecified; E02 Subclinical iodine-deficiency hypothyroidism; F41.1 Generalized anxiety disorder; G47.33 Obstructive sleep apnea (adult) (pediatric); F29 Unspecified psychosis not due to a substance or known physiological condition; G89.4 Chronic pain syndrome; H40.9 Unspecified glaucoma; Z85.118 Personal history of other malignant neoplasm of bronchus and lung; Z91.14 Patient's other noncompliance with medication regimen; Z95.5 Presence of coronary angioplasty implant and graft; Z88.0 Allergy status to penicillin; Z88.2 Allergy status to sulfonamides; Z88.8 Allergy status to other drugs, medicaments and biological substances; Z91.040 Latex allergy status; Z79.82 Long term (current) use of aspirin; Z79.899 Other long term (current) drug therapy; Z79.4 Long term (current) use of insulin
CPT/HCPCS: 36415; 71045; 80048; 80053; 82150; 82550; 82553; 82948; 83036; 83690; 83735; 83880; 84100; 84436; 84439; 84443; 84479; 84484; 85025; 85610; 85730; 93005; 94640; 97110; 97161-GP; 99285; A9500; A9502; J0360; J1815; J2785; J7030; J7620; Q0092